=== PATIENT | female | born 1970 | race Caucasian/White ===

== ENCOUNTER 2016-06-25 15:20 | Emergency (ER) | payer BC | END 2016-06-25 18:35 | disposition home or self-care (01) | LOC: ER 15:20 | DX: S01.01XA Laceration without foreign body of scalp, initial encounter (principal); S00.03XA Contusion of scalp, initial encounter; S13.4XXA Sprain of ligaments of cervical spine, initial encounter; W01.10XA Fall on same level from slipping, tripping and stumbling with subsequent striking against unspecified object, initial encounter; Y92.512 Supermarket, store or market as the place of occurrence of the external cause; I10 Essential (primary) hypertension; Z79.899 Other long term (current) drug therapy | CPT/HCPCS: 12001; 70450; 72125; 90471; 90715; 99070; 99283-25 ==

== ENCOUNTER 2016-06-26 12:54 | Emergency (ER) | payer BC | END 2016-06-26 13:50 | disposition home or self-care (01) | LOC: ER 12:54 | DX: Z02.83 Encounter for blood-alcohol and blood-drug test (principal); Z04.8 Encounter for examination and observation for other specified reasons; W01.0XXD Fall on same level from slipping, tripping and stumbling without subsequent striking against object, subsequent encounter; Y99.0 Civilian activity done for income or pay; E78.5 Hyperlipidemia, unspecified; Z79.899 Other long term (current) drug therapy | CPT/HCPCS: 80307; 99282 ==